=== PATIENT | female | born 2000 | race Caucasian/White ===

== ENCOUNTER 2022-09-16 09:11 | Outpatient (CLI) | payer OTHER ==
[2022-09-16] MEDS ORDERED: Iopamidol 370 76% 100 ML VIAL ONE (10:16)
== END 2022-09-16 09:12 | disposition home or self-care (01) ==
LOC: CT 09:11
PROVIDERS: ATTEND Internal Medicine
DX: R10.13 Epigastric pain (principal); K90.41 Non-celiac gluten sensitivity; K76.89 Other specified diseases of liver; R19.5 Other fecal abnormalities; K31.89 Other diseases of stomach and duodenum
CPT/HCPCS: 74177; Q9967